=== PATIENT | male | born 1985 | race Caucasian/White ===

== ENCOUNTER 2019-04-19 09:40 | Outpatient (CLI) | payer OTHER | END 2019-04-19 09:41 | disposition EMS.NT | LOC: EMS 09:40 | PROVIDERS: ATTEND Surgery | DX: Z04.1 Encounter for examination and observation following transport accident (principal) ==

== ENCOUNTER 2019-04-19 11:41 | Emergency (ER) | payer OTHER ==
[2019-04-19 12:08] VITALS: BP 129/83
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
== END 2019-04-19 15:05 | disposition home or self-care (01) ==
LOC: ED 11:41
DX: S16.1XXA Strain of muscle, fascia and tendon at neck level, initial encounter (principal); V89.2XXA Person injured in unspecified motor-vehicle accident, traffic, initial encounter; Y99.0 Civilian activity done for income or pay
CPT/HCPCS: 99281; 99282